=== PATIENT | female | born 1985 | race Caucasian/White ===

== ENCOUNTER 2016-10-13 07:28 | Emergency (ER) | payer BC ==
[2016-10-13] MEDS ORDERED: oxyCODONE/Acetamin 5/325 MG* TAB PO ONE (08:58)
[2016-10-13 09:08] LABS: Manual Entry Verification HAN0055; UR Preg Internal Control QC Line Present
[2016-10-13 09:09] LABS: Urine Bilirubin Negative (Negative); Urine Glucose Negative (Negative); Urine Nitrite Negative (Negative)
--- NOTE | 2016-10-13 10:12 | RAD ---
Indication: Right adnexal pain evaluate for torsion or ovarian cyst. COMPARISON: There are no prior studies available for comparison. TECHNIQUE: Multiple real-time transvaginal images of the pelvis were obtained. FINDINGS: The uterus is retroverted and normal in size shape and echogenicity. The uterus measured 5.6 x 1.9 x 3.6 cm. The endometrial echo measured 0.1 cm in thickness. The ovaries are mildly prominent with multiple small peripheral follicular cysts suggesting the possibility of polycystic ovarian disease. The right ovary measured 3.0 x 1.9 x 2.0 cm. The left ovary measured 4.0 x 1.9 x 1.6 cm. There is vascular flow within both ovaries. There is a small amount of free intraperitoneal fluid adjacent to the fundus of the uterus. IMPRESSION: 1. MILDLY PROMINENT OVARIES WITH MULTIPLE SMALL PERIPHERAL FOLLICULAR CYSTS SUGGESTING THE POSSIBILITY OF POLYCYSTIC OVARY DISEASE. THERE IS NO EVIDENCE FOR TORSION. 2. RETROVERTED UTERUS. 3. SMALL AMOUNT OF FREE INTRAPERITONEAL FLUID.
[2016-10-13 11:34] VITALS: BP 122/58
--- NOTE | 2016-10-13 13:50 | ED ---
Dalila House Matthew, scribed for Roberto Reynoso MD on 10/13/16 at 0917 . GI/ HPI - HPI Summary HPI Summary: A 31 y/o female presents to the ED with RLQ abdominal pain since 1 month ago. The abdominal pain was worse today and described as cramping; however since onset the pain has partially alleviated. The pain is rated 5/10 in severity and remains localized. The patient saw her PCP 3 weeks ago, and was prescribed progesterone to start her periods, but was unsuccessful. She had regular periods until April of 2016, when they suddenly stopped. The patient denies dysuria, urinary symptoms, back pain, vomiting, diarrhea, and pain with intercourse. She has chronic constipation and periodic white vaginal discharge. The patient took her 's pain mediation 3 days ago for pain. She took ibuprofen yesterday for pain. She has a Hx of a cervical cyst approximately 3 years ago. She is scheduled to have an US on 10/25, but presents today, because of the pain and cramping. - History of Current Complaint Chief Complaint: EDAbdPain Time Seen by Provider: 10/13/16 08:04 Stated Complaint: BUMP ON RT SIDE OF ABD/CRAMPING Hx Obtained From: Patient Onset/Duration: Atraumatic, Still Present Timing: Intermittent Severity: Moderate Current Severity: Mild Pain Intensity: 4 Location of Pain: RLQ Pain Characteristics: Cramping Associated Signs and Symptoms: Positive: Abdominal Pain - RLQ. Negative: Back Pain, Nausea, Vomiting, Diarrhea, Dysuria, UTI Symptoms - Allergy/Home Medications Allergies/Adverse Reactions: Allergies Allergy/AdvReac Type Severity Reaction Status Date / Time Pyridoxine [From [facility]] Allergy Hives/Diff. Verified 10/13/16 07:59 Breathing/I tching flu shot Allergy Unknown Uncoded 10/13/16 08:00 Reaction Details Home Medications: Home Medications ALPRAZolam TAB* [Xanax TAB*] 0.25 mg PO TID PRN 10/13/16 [History Confirmed ] Escitalopram (NF) [Lexapro (NF)] 5 mg PO DAILY 10/13/16 [History Confirmed 10/13] Multiple Vitamins W/ Minerals [Multi Vitamin and Mineral] 1 tab PO DAILY [History Confirmed 01/19/17] [place]-3 Fatty Acids (Nf) [Fish Oil (NF)] 1,000 mg PO DAILY 10/13/16 [History Confirmed 10/13/16] Pantoprazole Sodium [Protonix] 40 mg PO DAILY 10/13/16 [History Confirmed ] Vitamin D TAB* 1 tab PO DAILY 10/13/16 [History Confirmed 10/13/16] PMH/Surg Hx/FS Hx/Imm Hx GI History: Reports: Hx Gastroesophageal Reflux Disease Psychiatric History: Reports: Hx Depression Infectious Disease History: No Infectious Disease History: Denies: Traveled Outside the [place] in Last 30 Days - Family History Known Family History: Positive: Diabetes - maternal Family History: FHx of breast CA - paternal - Social History Alcohol Use: None Substance Use Type: Reports: None Smoking Status (MU): Unknown if Ever Smoked Review of Systems Constitutional: Negative Eyes: Negative ENT: Negative Cardiovascular: Negative Respiratory: Negative Gastrointestinal: Other - Chronic constipation Positive: Abdominal Pain - RLQ. Negative: Vomiting, Diarrhea, Nausea Genitourinary: Other - White vaginal discharge Negative: dysuria Musculoskeletal: Negative Negative: Myalgia Skin: Negative Neurological: Negative Psychological: Normal All Other Systems Reviewed And Are Negative: Yes Physical Exam - Summary Physical Exam Summary: The patient is well-nourished in no acute distress and in no acute pain. The skin is warm and dry and skin color reflects adequate perfusion. HEENT: The head is normocephalic and atraumatic. The pupils are equal and reactive. The conjunctivae are clear and without drainage. Nares are patent and without drainage. Mouth reveals moist mucous membranes and the throat is without erythema and exudate. The external ears are intact. The ear canals are patent and without drainage. The tympanic membranes are intact. Neck is supple with full range of motion and non-tender. There are no carotid bruits. There is no neck vein distension. Respiratory: Chest is non-tender. Lungs are clear to auscultation and breath sounds are symmetrical and equal. Cardiovascular: Heart is regular rate and rhythm. There is no murmur or rub auscultated. There is no peripheral edema and pulses are symmetrical and equal. Abdomen: The abdomen is soft with tenderness over the right ovary. No CVA tenderness, LLQ, suprapubic, epigastric, RUQ, or Mcburney's point tenderness. Tenderness with percussion the right heal. There are normal bowel sounds heard in all four quadrants and there is no organomegaly palpated. Musculoskeletal: There is no back pain noted. Extremities are non-tender with full range of motion. There is good capillary refill. There is no peripheral edema or calf tenderness elicited. Neurological: Patient is alert and oriented to person, place and time. The patient has symmetrical motor strength in all four extremities. Cranial nerves are grossly intact. Deep tendon reflexes are symmetrical and equal in all four extremities. Psychiatric: The patient has an appropriate affect and does not exhibit any anxiety or depression. Triage Information Reviewed: Yes Vital Signs On Initial Exam: Initial Vitals Temp Pulse Resp BP Pulse Ox 98.4 F 78 18 162/72 97 10/13/16 07:53 10/13/16 07:53 10/13/16 07:53 10/13/16 07:53 10/13/16 07:53 Vital Signs Reviewed: Yes Diagnostics - Vital Signs Vital Signs Temp Pulse Resp BP Pulse Ox 10/13/16 07:53 98.4 F 78 18 162/72 97 - Laboratory Lab Results: Lab Results 10/13/16 Range/Units 08:50 Urine Color Yellow Urine Appearance Cloudy Urine pH 7.0 (5-9) Ur Specific [place] 1.009 L (1.010-1.030) Urine Protein Negative (Negative) Urine Ketones Negative (Negative) Urine Blood Negative (Negative) Urine Nitrate Negative (Negative) Urine Bilirubin Negative (Negative) Urine Urobilinogen Negative (Negative) Ur Leukocyte Esterase Negative (Negative) Urine Glucose Negative (Negative) Urine Ascorbic Acid * H (Negative) Urine Test Negative (Negative) Lab Statement: Any lab studies that have been ordered have been reviewed, and results considered in the medical decision making process. - Ultrasound No standard instances Ultrasound Interpretation: Positive (See Comments) - IMPRESSION: 1. MILDLY PROMINENT OVARIES WITH MULTIPLE SMALL PERIPHERAL FOLLICULAR CYSTS SUGGESTING THE POSSIBILITY OF POLYCYSTIC OVARY DISEASE. THERE IS NO EVIDENCE FOR TORSION. 2. RETROVERTED UTERUS. 3. SMALL AMOUNT OF FREE INTRAPERITONEAL FLUID. Ultrasound Interpretation Completed By: Radiologist Re-Evaluation - Re-Evaluation First Eval Re-Evaluation Time: 11:00 Change: Improved Comment: Reviewed the US study with the patient and she agrees with the treatment course. GIGU Course/Dx - Course Assessment/Plan: Discussed transvaginal US with patient and she agrees with the procedure. A 31 y/o female presents to the ED with RLQ abdominal pain since 1 month ago. She requested an US today, which she had scheduled on 10/25, because of increased pain. US showed polycystic ovary disease. The patient was given Percocet in the ED and to go home with. Ovarian torsion, ovarian cyst, and were considered. She will be discharged home and follow-up with her PCP. - Diagnoses Differential Diagnoses - Female: Ovarian Cyst, Ovarian Torsion, Provider Diagnoses: Polycystic ovary disease Discharge - Discharge Plan Condition: Stable Disposition: HOME Prescriptions: Ibuprofen TAB* [Motrin TAB* 600 MG] 600 mg PO Q6H PRN #30 tab PRN Reason: Pain oxyCODONE/Acetamin 5/325 MG* [Percocet 5/325 TAB*] 1 tab PO Q6H PRN #20 tab MDD 4 PRN Reason: pain Patient Education Materials: Oxycodone/Acetaminophen (By mouth), Polycystic Ovarian Syndrome (ED) Forms: *Work Release Referrals: Zaynab Juarez MD [Primary Care Provider] - Haider Parson MD [Medical Doctor] - Additional Instructions: Please keep your appointment with Dr. Juarez and follow-up with Dr. Joseph at your convenience for further work-up and management. The documentation as recorded by the Dalila day Matthew accurately reflects the service I personally performed and the decisions made by , Roberto Reynoso MD.
== END 2016-10-13 11:33 | disposition home or self-care (01) ==
LOC: ED 07:28
DX: E28.2 Polycystic ovarian syndrome (principal); K21.9 Gastro-esophageal reflux disease without esophagitis; F32.9 Major depressive disorder, single episode, unspecified
CPT/HCPCS: 76830; 81003; 81025; 99282; A9270-GY